=== PATIENT | female | born 1970 | race Caucasian/White ===

== ENCOUNTER 2017-06-03 15:13 | Emergency (ER) | payer OTHER ==
--- NOTE | 2017-06-03 15:56 | ER Document Report ---
ED Medical Screen (RME) - General Chief Complaint: Abdominal Pain Stated Complaint: ABDOMINAL PAIN Time Seen by Provider: 06/03/17 15:53 Notes: Patient states that she has had her gallbladder removed previously. She states she is now having severe epigastric abdominal pain. She has nausea and vomiting. TRAVEL OUTSIDE OF THE [place] IN LAST 30 DAYS: No - Related Data Allergies/Adverse Reactions: No Known Allergies Allergy (Verified 06/03/17 15:48) Past Medical History - Social History Chew tobacco use (# tins/day): No Frequency of alcohol use: Social Drug Abuse: None - Past Medical History Cardiac Medical History: Reports: Hx Hypertension Renal/ Medical History: Denies: Hx Peritoneal Dialysis GI Medical History: Reports: Hx Gastroesophageal Reflux Disease Musculoskeltal Medical History: Reports Hx Fibromyalgia Past Surgical History: Reports: Hx Section - x 3, Hx Cholecystectomy - Immunizations Hx Diphtheria, Pertussis, Tetanus Vaccination: Yes - unknown Physical Exam - Vital signs Vitals: Temp Pulse Resp BP Pulse Ox 97.5 F 98 16 125/87 H 100 06/03/17 15:35 06/03/17 15:35 06/03/17 15:35 06/03/17 15:35 06/03/17 15:35 Course - Vital Signs Vital signs: Temp Pulse Resp BP Pulse Ox 97.5 F 98 16 125/87 H 100 06/03/17 15:35 06/03/17 15:35 06/03/17 15:35 06/03/17 15:35 06/03/17 15:35
[2017-06-03 17:24] LABS: ABSOLUTE BASOPHILS # (AUTO) 0.1 10^3/uL (0.0-0.2); ABSOLUTE LYMPHOCYTES (AUTO) 1.6 10^3/uL (0.5-4.7); ABSOLUTE MONOCYTES (AUTO) 0.7 10^3/uL (0.1-1.4); ABSOLUTE NEUT (AUTO) 10.7 10^3/uL (1.7-8.2); EOSINOPHILS % (AUTO) 0.3 % (0-6); HEMATOCRIT 43.9 % (36.0-47.0); HEMOGLOBIN 15.4 g/dL (12.0-15.5); LYMPHOCYTES % (AUTO) 12.1 % (13-45); MEAN CORPUSCULAR HEMOGLOBIN 31.9 pg (27.0-33.4); MEAN CORPUSCULAR HGB CONC 35.1 g/dL (32.0-36.0); MEAN CORPUSCULAR VOLUME 91 fl (80-97); MONOCYTES % (AUTO) 5.1 % (3-13); PLATELET COUNT 437 10^3/uL (150-450); RED BLOOD COUNT 4.83 10^6/uL (3.72-5.28); RED CELL DISTRIBUTION WIDTH 13.3 % (11.5-14.0); SEGMENTED NEUTROPHILS % (AUTO) 81.5 % (42-78); TOTAL CELLS COUNTED % (AUTO) 100 %; WHITE BLOOD COUNT 13.1 10^3/uL (4.0-10.5)
[2017-06-03 17:39] LABS: APPEARANCE,URINE SLIGHTLY-CLOUDY; BILIRUBIN,URINE NEGATIVE (NEGATIVE); COLOR,URINE YELLOW; GLUCOSE, URINE NEGATIVE (NEGATIVE); KETONES,URINE TRACE mg/dL (NEGATIVE); LEUKOCYTE ESTERASE,URINE NEGATIVE (NEGATIVE); NITRITE,URINE NEGATIVE (NEGATIVE); PROTEIN,URINE NEGATIVE (NEGATIVE); UROBILINOGEN,URINE NEGATIVE mg/dL (<2.0)
[2017-06-03 17:44] LABS: ALANINE AMINOTRANSFERASE 91 U/L (9-52); ALBUMIN 4.9 g/dL (3.5-5.0); ALKALINE PHOSPHATASE 86 U/L (38-126); ANION GAP 16 (5-19); ASPARTATE AMINO TRANSFERASE 77 U/L (14-36); BILIRUBIN,DIRECT 0.3 mg/dL (0.0-0.4); BILIRUBIN,TOTAL 0.5 mg/dL (0.2-1.3); BLOOD UREA NITROGEN 20 mg/dL (7-20); CALCIUM 10.7 mg/dL (8.4-10.2); CARBON DIOXIDE 29 mmol/L (22-30); CHLORIDE 97 mmol/L (98-107); GLUCOSE 122 mg/dL (75-110); LIPASE 200.2 U/L (23-300); POTASSIUM 3.7 mmol/L (3.6-5.0); TOTAL PROTEIN 8.5 g/dL (6.3-8.2)
--- NOTE | 2017-06-03 17:46 | ER Document Report ---
ED GI/ - General Chief Complaint: Abdominal Pain Stated Complaint: ABDOMINAL PAIN Time Seen by Provider: 06/03/17 15:53 Notes: The patient is a 46-year-old female, past medical history GERD, cholecystectomy 3 years ago, presents with epigastric abdominal pain, nausea and vomiting for the past few days. She is also having diarrhea. Patient denies fevers, hematemesis, bloody stool, recent travel, tainted foods, urinary symptoms or chest pain. TRAVEL OUTSIDE OF THE [place] IN LAST 30 DAYS: No - Related Data Allergies/Adverse Reactions: No Known Allergies Allergy (Verified 06/03/17 15:48) Past Medical History - General Information source: Patient - Social History Smoking Status: Current Every Day Smoker Chew tobacco use (# tins/day): No Frequency of alcohol use: Social Drug Abuse: None Family History: Reviewed & Not Pertinent Patient has suicidal ideation: No Patient has homicidal ideation: No - Past Medical History Cardiac Medical History: Reports: Hx Hypertension Renal/ Medical History: Denies: Hx Peritoneal Dialysis GI Medical History: Reports: Hx Gastroesophageal Reflux Disease Musculoskeltal Medical History: Reports Hx Fibromyalgia Past Surgical History: Reports: Hx Section - x 3, Hx Cholecystectomy - Immunizations Hx Diphtheria, Pertussis, Tetanus Vaccination: Yes - unknown Review of Systems - Review of Systems Notes: REVIEW OF SYSTEMS: CONSTITUTIONAL: -fevers, -chills EENT: -eye pain, -difficulty swallowing, -nasal congestion CARDIOVASCULAR: -chest pain, -syncope. RESPIRATORY: -cough, -SOB GASTROINTESTINAL: +epigastric abdominal pain, +nausea, +vomiting, -diarrhea GENITOURINARY: -dysuria, -hematuria MUSCULOSKELETAL: -back pain, -neck pain SKIN: -rash or skin lesions. HEMATOLOGIC: -easy bruising or bleeding. LYMPHATIC: -swollen, enlarged glands. NEUROLOGICAL: -altered mental status or loss of consciousness, -headache, - neurologic symptoms PSYCHIATRIC: -anxiety, -depression. ALL OTHER SYSTEMS REVIEWED AND NEGATIVE. Physical Exam - Vital signs Vitals: Temp Pulse Resp BP Pulse Ox 97.5 F 98 16 125/87 H 100 06/03/17 15:35 06/03/17 15:35 06/03/17 15:35 06/03/17 15:35 06/03/17 15:35 - Notes Notes: PHYSICAL EXAMINATION: GENERAL: Well-appearing, well-nourished and in no acute distress. HEAD: Atraumatic, normocephalic. EYES: Pupils equal round and reactive to light, extraocular movements intact, sclera anicteric, conjunctiva are normal. ENT: nares patent, oropharynx clear without exudates. Moist mucous membranes. NECK: Normal range of motion, supple without lymphadenopathy LUNGS: Breath sounds clear to auscultation bilaterally and equal. No wheezes rales or rhonchi. HEART: Regular rate and rhythm without murmurs ABDOMEN: Soft, moderate epigastric tenderness, normoactive bowel sounds. No guarding, no rebound. No masses appreciated. EXTREMITIES: Normal range of motion, no pitting or edema. No cyanosis. NEUROLOGICAL: Cranial nerves grossly intact. Normal speech, normal gait. Normal sensory and motor exams. PSYCH: Normal mood, normal affect. SKIN: Warm, Dry, normal turgor, no rashes or lesions noted. Course - Re-evaluation Re-evalutation: Patient with epigastric abdominal pain, nausea and vomiting. Lipase is normal and official ultrasound does not show any concerning abnormalities, although it was limited with bowel gas. She has already had a cholecystectomy and no evidence of a retained stone. She has good bowel sounds and is having bowel movements, so bowel obstruction is very unlikely at this time. She does have a slight leukocytosis, but this is most likely related to her nausea and vomiting. She already takes Zantac and told her to increase this to twice a day and add a PPI. She will follow-up with the GI doctor. Given very strict return precautions and she understands. - Vital Signs Vital signs: Temp Pulse Resp BP Pulse Ox 97.9 F 87 18 118/84 99 06/03/17 19:07 06/03/17 19:07 06/03/17 19:07 06/03/17 19:07 06/03/17 19:07 - Laboratory Result Diagrams: 06/03/17 17:06 06/03/17 17:06 Laboratory results interpreted by me: 06/03/17 06/03/17 06/03/17 17:06 17:06 17:06 WBC 13.1 H Seg Neutrophils % 81.5 H Lymphocytes % 12.1 L Absolute Neutrophils 10.7 H Chloride 97 L Glucose 122 H Calcium 10.7 H AST 77 H ALT 91 H Total Protein 8.5 H Urine Ketones TRACE H Urine Blood MODERATE H - Diagnostic Test Radiology reviewed: Image reviewed, Reports reviewed Radiology results interpreted by me: JULIETTE US: Limited, but no acute findings Discharge - Discharge Clinical Impression: Epigastric abdominal pain Condition: Stable Disposition: HOME, SELF-CARE Additional Instructions: ABDOMINAL PAIN: There are many causes of abdominal pain. Pain can mean a serious problem requiring surgery (such as appendicitis). It can also be an innocent problem that goes away on its own (such as a viral infection). Often, time must pass to determine the cause of pain. The physician does not feel that hospitalization is necessary, at present. Things may change within the next 24 hours. Call the doctor or come back for re- examination if any problems occur, such as: (1) Pain that becomes more severe, steady, or becomes concentrated in one specific area. Also, pain that is more severe with movement or coughing. (2) Vomiting that persists or becomes more frequent. (3) Blood in the vomitus, urine, or bowel movements. Blood in the stool may have a tarry or black appearance. (4) Shaking chills or fever greater than 100 degrees F. (5) The abdomen becomes more distended or swollen. (6) Bowel movements cease. (7) Failure to improve as expected. NORMAL EXAM AND WORKUP: At this time, your examination and workup show no significant abnormality. No significant abnormal physical findings are noted. All laboratory, EKG, and imaging (x-ray, CT scans, ultrasound) studies that were ordered show no significant abnormality. Although your examination and all studies that were ordered showed no significant abnormal finding, there are no examinations and no studies that are 100% accurate. There is always the possibility that some abnormality could exist and not be detected with physical examination or within the limits and capabilities of laboratory and other studies. You should return or follow up as you were instructed on your visit today for further evaluation if your symptoms do not resolve. ANTINAUSEA MEDICATION: You have been given a medication to suppress nausea and vomiting. This type of medication can be given as a shot, pill, or suppository. It will usually last for many hours. Pills and shots usually last six to eight hours, suppositories last about 12 hours. For the typical illness, only one or two doses of the medication may be necessary. Mild lightheadedness may occur. This type of medicine can cause drowsiness. Do not drive or operate dangerous machinery while under its influence. Do not mix with alcohol. See your doctor at once if you have muscle spasms or tightness, or uncontrollable motions (particularly of the neck, mouth, or jaw). Persistent vomiting or severe lightheadedness should also be evaluated by the physician. FOLLOW-UP CARE: If you have been referred to a physician for follow-up care, call the physician s office for an appointment as you were instructed or within the next two days. If you experience worsening or a significant change in your symptoms, notify the physician immediately or return to the Emergency Department at any time for re-evaluation. Prescriptions: Omeprazole Magnesium [Prilosec Otc] 20 mg PO Q12H #14 tablet.dr Forms: Elevated Blood Pressure Referrals: CINDY ROMO PA-C [Primary Care Provider] - Follow up as needed DOTTIE HADDAD MD [ACTIVE STAFF] - Follow up as needed
--- NOTE | 2017-06-03 18:24 | RADIOLOGY REPORT (SQ) ---
EXAM DESCRIPTION: U/S ABDOMEN LIMITED W/O DOP COMPLETED DATE/TIME: 06/03/2017 6:10 pm REASON FOR STUDY: ruq pain/?cbd stone COMPARISON: Abdominal CT scan dated March 2015 TECHNIQUE: Dynamic and static grayscale images acquired of the abdomen and recorded on PACS. Davideo dalia selected color Doppler and spectral images recorded. LIMITATIONS: Study is limited due to the patient's condition and overlying bowel gas. FINDINGS: PANCREAS: Pancreas could not be visualized due to overlying bowel gas. LIVER: No masses. Echotexture normal. LIVER VASCULATURE: Normal directional flow of the main portal vein. GALLBLADDER: Status post cholecystectomy ULTRASOUND-DETECTED CORDOVA'S SIGN: Negative. INTRAHEPATIC DUCTS AND COMMON DUCT: CBD and intrahepatic ducts normal caliber. No filling defects. INFERIOR VENA CAVA: Normal flow. AORTA: No aneurysm. RIGHT KIDNEY: 9.3 cm in length. Normal echogenicity. No solid or suspicious masses. No hydronephrosi s. No calcifications. PERITONEAL AND RIGHT PLEURAL SPACE: No ascites or effusions. OTHER: No other significant findings. IMPRESSION: Somewhat limited study as noted above. No significant intra-abdominal abnormalities wer e identified. Findings as noted above TECHNICAL DOCUMENTATION: JOB ID: [id number] [employer]- All Rights Reserved Reading location - IP/workstation name: [email or web address]
[2017-06-03] MEDS ORDERED: ONDANSETRON 4 MG TAB.RAPDIS PO ONE (18:41)
[2017-06-03] MEDS ORDERED: LIDOCAINE 2% VISCOUS SOLN 20 ML UDCUP PO ONE (18:42)
[2017-06-03] MEDS ORDERED: METOCLOPRAMIDE HCL ORAL SOLN 10 MG/10 ML UDCUP PO ONE (18:42)
[2017-06-03] MEDS ORDERED: MAG HYDROX/AL HYDROX/SIMETH SUSP 30 ML UDCUP PO ONE (18:42)
[2017-06-03 19:11] VITALS: BP 118/84
== END 2017-06-03 19:11 | disposition home or self-care (01) ==
LOC: ER 15:13
DX: K21.9 Gastro-esophageal reflux disease without esophagitis (principal); R10.13 Epigastric pain; R11.2 Nausea with vomiting, unspecified; R19.7 Diarrhea, unspecified; I10 Essential (primary) hypertension; F17.200 Nicotine dependence, unspecified, uncomplicated; D72.829 Elevated white blood cell count, unspecified; Z79.899 Other long term (current) drug therapy
CPT/HCPCS: 99284; 36415; 83690; 85025; 81025; 80053; 81001; 76705; S0119; J3490

== ENCOUNTER → 2017-07-22 | Outpatient (CLI) | payer OTHER ==
--- NOTE | 2017-07-22 16:50 | RADIOLOGY REPORT (SQ) ---
EXAM DESCRIPTION: CT ABDOMEN WITH IV ORAL CONT COMPLETED DATE/TIME: 07/22/2017 1:37 pm REASON FOR STUDY: ABN LFT (R94.5), BLOATING (R14.0), EPIGASTRIC PAIN (R10.13)DIAPHRAGMATIC HE R10.13 EPIGASTRIC PAIN R94.5 ABNORMAL RESULTS OF LIVER FUNCTION STUDIES COMPARISON: CT abdomen pelvis 04/04/2015 TECHNIQUE: CT scan of the abdomen performed with intravenous and with oral contrast using helical sc anning technique with dynamic intravenous contrast injection. Images reviewed with lung, soft tissue, and bone windows. Reconstructed coronal and sagittal MPR images reviewed. Delayed images for evaluat ion of the urinary system also acquired and evaluated. All images stored on PACS. All CT scanners at this facility use dose modulation, iterative reconstruc tion, and/or weight based dosing when appropriate to reduce radiation dose to as low as reasonably ac hievable (ALARA). [facility]: Dose Right [facility]: CareDose [facility]: Dose Right [facility]: Teradose 4D [facility]: PTC [employer]rapeutics CONTRAST TYPE AND DOSE: contrast/concentration: Isovue 370.00 mg/ml; Total Contrast Delivered: 74.0 ml; Total Saline Delivered: 66.0 ml RENAL FUNCTION: Creatinine 0.9 RADIATION DOSE: CT Rad equipment meets quality standard of care and radiation dose reduction techniq ues were employed. CTDIvol: 6.6 - 7.4 mGy. DLP: 463 mGy-cm. . LIMITATIONS: None. FINDINGS: LOWER CHEST: No significant findings. No nodules or infiltrates. LIVER: Normal size. No masses. No dilated ducts. Diffuse low attenuation from fatty infiltration. SPLEEN: Normal size. No focal lesions. PANCREAS: No masses. No significant calcifications. No adjacent inflammation or peripancreatic fluid collections. Pancreatic duct not dilated. GALLBLADDER: Surgically absent ADRENAL GLANDS: No significant masses or asymmetry. RIGHT KIDNEY AND URETER: No solid masses. No significant calcifications. No hydronephrosis or hyd roureter. LEFT KIDNEY AND URETER: No solid masses. No significant calcifications. No hydronephrosis or hydr oureter. AORTA AND VESSELS: No aneurysm. No dissection. Renal arteries, SMA, celiac without stenosis. RETROPERITONEUM: No retroperitoneal adenopathy, hemorrhage or masses. BOWEL AND PERITONEAL CAVITY: Patient drank oral contrast. Visualized stomach, small bowel and colon are unremarkable. No bowel obstruction. No free air or fluid. APPENDIX: Normal. ABDOMINAL WALL: No masses. No hernias. BONES: No significant or acute findings. OTHER: No other significant finding. IMPRESSION: Post cholecystectomy. Fatty liver Otherwise unremarkable CT abdomen with oral and IV contrast TECHNICAL DOCUMENTATION: JOB ID: [id number] Quality ID # [id number]: Final reports with documentation of one or more dose reduction techniques (e.g., Au tomated exposure control, adjustment of the mA and/or kV according to patient size, use of iterative reconstruction technique) 2010 [employer]- All Rights Reserved Reading location - IP/workstation name: [email or web address]
== END ==
LOC: RAD 13:11
PROVIDERS: ATTEND Internal Medicine Gastroenterology
DX: K44.9 Diaphragmatic hernia without obstruction or gangrene (principal); R10.13 Epigastric pain; R14.0 Abdominal distension (gaseous); R94.5 Abnormal results of liver function studies
CPT/HCPCS: 74160; 82565

== ENCOUNTER 2019-11-15 14:54 | Emergency (ER) | payer OTHER ==
--- NOTE | 2019-11-15 15:35 | ER Document Report ---
ED Extremity Problem, Lower - General Chief Complaint: Toe Injury Stated Complaint: RIGHT FOOT/TOES INJURY Time Seen by Provider: 11/15/19 15:27 Primary Care Provider: HORTENSIA BOLES DO [Primary Care Provider] - Follow up as needed Mode of Arrival: Wheelchair Information source: Patient Notes: 49-year-old female presented to ED for complaint of pain to the third and fourth toe on the right foot as well as the foot red in front of these 2 toes. She states it ended on the bed yesterday. She states is continued to have pain so she came to the emergency room to have it evaluated. She states she did take ibuprofen earlier today. She is a former smoker drinks 2 glasses of wine a day but 4 days a week no drugs. States she does take a water pill for her blood pressure but no other medical history. She is alert oriented respirations regular nonlabored speaking in full sentences. Constitutional: Negative for fever. HENT: Negative for sore throat. Eyes: Negative for visual changes. Cardiovascular: Negative for chest pain. Respiratory: Negative for shortness of breath. Gastrointestinal: Negative for abdominal pain, vomiting or diarrhea. Genitourinary: Negative for dysuria. Musculoskeletal: Pain bruising to the right foot and the fourth and third toe Skin: As into the third and fourth toe on right foot Neurological: Negative for headaches, weakness or numbness. 10 point ROS negative except as marked above and in HPI. PHYSICAL EXAMINATION: GENERAL: Well-appearing, well-nourished and in no acute distress. HEAD: Atraumatic, normocephalic. EYES: Pupils equal round extraocular movements intact, conjunctiva are normal. ENT: Nares patent NECK: Normal range of motion LUNGS: No respiratory distress Musculoskeletal: Normal range of motion patient has pain to the right foot just in front of the left third and fourth toe and bruising and pain to the third and fourth toe. NEUROLOGICAL: Normal speech, normal gait. PSYCH: Normal mood, normal affect. SKIN: Warm, Dry, normal turgor, no rashes or lesions noted. Bruising to the third and fourth toe on right foot TRAVEL OUTSIDE OF THE [place] IN LAST 30 DAYS: No - HPI Patient complains to provider of: Injury, Pain, Swelling Location: Foot, 3rd Toe, 4th Toe Occurred: Yesterday Where: Home, Indoors Onset/Duration: Gradual Quality of pain: Achy, Throbbing Severity: Moderate Pain Level: 3 Context: Barefoot Recent injury: Yes Associated symptoms: Painful ambulation Exacerbated by: Nothing Relieved by: Nothing - Related Data Allergies/Adverse Reactions: No Known Allergies Allergy (Verified 06/03/17 15:48) Past Medical History - General Information source: Patient - Social History Smoking Status: Former Smoker Frequency of alcohol use: Heavy - 2 glasses of wine 4 days a week Drug Abuse: None Lives with: Family Family History: Reviewed & Not Pertinent Patient has suicidal ideation: No Patient has homicidal ideation: No - Past Medical History Cardiac Medical History: Reports: Hx Hypertension Pulmonary Medical History: Reports: None EENT Medical History: Reports: None Neurological Medical History: Reports: None Endocrine Medical History: Reports: None Renal/ Medical History: Reports: None Malignancy Medical History: Reports: None GI Medical History: Reports: Hx Gastroesophageal Reflux Disease Musculoskeletal Medical History: Reports Hx Fibromyalgia Skin Medical History: Reports None Psychiatric Medical History: Reports: None Traumatic Medical History: Reports: None Infectious Medical History: Reports: None Past Surgical History: Reports: Hx Section - x 3, Hx Cholecystectomy - Immunizations Hx Diphtheria, Pertussis, Tetanus Vaccination: Yes - unknown Physical Exam - Vital signs Vitals: Temp Pulse Resp BP Pulse Ox 98.4 F 84 20 116/74 96 11/15/19 15:00 11/15/19 15:00 11/15/19 15:00 11/15/19 15:00 11/15/19 15:00 Course - Re-evaluation Re-evalutation: 11/15/19 17:01 Discussed x-rays with patient and written report of x-rays given to patient. There is no fractures noted on the x-rays. Patient was given instructions on use of crutches and she states it is very painful to bear weight on this foot. She was given the name and number of orthopedics. She was instructed on elevation ice ibuprofen. Patient verbalized understanding and agreement with treatment plan patient was discharged home. - Vital Signs Vital signs: Temp Pulse Resp BP Pulse Ox 98.4 F 84 20 116/74 96 11/15/19 16:04 11/15/19 15:00 11/15/19 15:00 11/15/19 15:00 11/15/19 15:00 - Diagnostic Test Radiology reviewed: Image reviewed, Reports reviewed Procedures - Immobilization Right Foot Time completed: 17:01 Pre-Proc Neuro Vasc Exam: Normal Immobilizer type: Crutches Performed by: RN Post-Proc Neuro Vasc Exam: Normal Alignment checked and good: Yes Discharge - Discharge Clinical Impression: Contusion of right foot including toes Qualifiers: Encounter type: initial encounter Qualified Code(s): S90.31XA - Contusion of right foot, initial encounter; S90.121A - Contusion of right lesser toe(s) without damage to nail, initial encounter Condition: Stable Disposition: HOME, SELF-CARE Additional Instructions: CONTUSION: Your injury has resulted in a contusion -- a crushing of the deep tissues. No injury to important structures was detected during the physician's exam. Contusions vary in the amount of pain they cause, and in the length of time required for healing. Typically, the area will become bruised, and will remain painful to touch for two or three weeks. However, most patients are back to working and playing within a few days. After the initial period of rest and cold-packs, your symptoms (together with the doctor's recommendations) will determine how rapidly you can get back to full activity. Usually this means "do what feels okay, but don't do things that hurt." If re-examination was recommended, it's important to follow up as instructed. Call the doctor or return any time if pain increases, if swelling becomes severe, if you develop numbness or weakness in an injured extremity, or if any other alarming symptoms occur. USE OF TYLENOL (ACETAMINOPHEN): Acetaminophen may be taken for pain relief or fever control. It's much safer than aspirin, offering a wider range of "safe" dosages. It is safe during . Some brand names are Tylenol, Panadol, Datril, Anacin 3, Tempra, and Liquiprin. Acetaminophen can be repeated every four hours. The following are maximum recommended dosages: WEIGHT Dose Drops Elixir Chewable(80mg) (LBS.) drprs=droppers tsp=teaspoon 6 40 mg 0.4 ml (1/2) 6-11 80 mg 0.8 ml (full) tsp 1 tab 12-16 120 mg 1 1/2 drprs 3/4 tsp 1 1/2 tabs 17-23 160 mg 2 drprs 1 tsp 2 tabs 24-30 240 mg 3 drprs 1 1/2 tsp 3 tabs 30-35 320 mg 2 tsp 4 tabs 36-41 360 mg 2 1/4 tsp 4 1/2 tabs 42-47 400 mg 2 1/2 tsp 5 tabs 48-53 480 mg 3 tsp 6 tabs 54-59 520 mg 3 1/4 tsp 6 1/2 tabs 60-64 560 mg 3 1/2 tsp 7 tabs 65-70 600 mg 3 3/4 tsp 7 1/2 tabs 71-76 640 mg 4 tsp 8 tabs 77-82 720 mg 4 1/2 tsp 9 tabs 83-88 800 mg 5 tsp 10 tabs >89 pounds or adults 650 mg to 900 mg Acetaminophen can be repeated every four hours. Maximum dose not to exceed 4000 mg a day. These maximum recommended dosages are slightly higher than the dosages written on the product container, but these dosages are very safe and below the toxic dosage for acetaminophen. USE OF CRUTCHES: The doctor has recommended that you not bear weight at this time. You will need to use crutches. Adjust the crutches so the tops come to about two inches under the armpit while you are standing upright. Use your hands -- not your armpits -- to support your weight. To get into a chair, support yourself with one crutch on the injured side. Hold the chair with the other hand, then lower yourself while putting all your weight on the good leg. Going up stairs is `good leg up, step up, then bring up crutches and bad leg.' Down stairs is `bad leg and crutches down, then bring good leg down.' If you develop numbness or swelling in an arm or hand, you are using the crutches incorrectly. Return if you are having any problems with the crutches. ICE & ELEVATION: Apply ice packs frequently against the painful area. Many different schedules are recommended, such as "20 minutes on, 20 minutes off" or "one hour ice, two hours rest." If you need to work, you may need to go longer between ice treatments. You should plan to have the area ice packed AT LEAST one-fourth of the time. The ice should be applied over the wrap, tape, or splint, or over a layer of cloth -- not directly against the skin. Some ice bags have a built-in cloth and can be put directly on the skin. Your injured part should be elevated as much as possible over the next 48 hours. Try to keep the injury above the level of the heart. Avoid use of the injured area. Elevation and rest will decrease the swelling. USE OF [id number] IBUPROFEN: Ibuprofen (Advil, Nuprin, Medipren, Motrin IB) is a medication for fever and pain control. In addition, it has anti- inflammatory effects which may be beneficial, especially in the treatment of injuries. It's best to take ibuprofen with food. Persons with ulcer disease or allergy to aspirin should notify their physician of this before taking ibuprofen. Ibuprofen can be given every four to six hours, for a total of four doses daily. Age Pain or fever dose Antiinflammatory dose 6-8 yr 200 mg (1 tab) 200 mg (1 tab) 9-11 yr 200 mg (1 tab) 200-400 mg (1-2 tab) 11-14 yr 200-400 mg (1-2 tab) 400 mg (2 tab) 15-adult 400 mg (2 tab) 600 mg (3 tab) FOLLOW-UP CARE: If you have been referred to a physician for follow-up care, call the physicians office for an appointment as you were instructed or within the next two days. If you experience worsening or a significant change in your symptoms, notify the physician immediately or return to the Emergency Department at any time for re-evaluation. Forms: Return to Work Referrals: HORTENSIA BOLES DO [Primary Care Provider] - Follow up as needed [facility] [Provider Group] - Follow up as needed
--- NOTE | 2019-11-15 16:44 | RADIOLOGY REPORT (SQ) ---
EXAM DESCRIPTION: FOOT RIGHT COMPLETE IMAGES COMPLETED DATE/TIME: 11/15/2019 4:05 pm REASON FOR STUDY: pain and injury to right foot and 3 and4 toe yest COMPARISON: None. NUMBER OF VIEWS: Three views. TECHNIQUE: AP, lateral and oblique radiographic images acquired of the right foot. LIMITATIONS: None. FINDINGS: MINERALIZATION: Normal. BONES: No acute fracture or dislocation. No worrisome bone lesions. JOINTS: No effusions. SOFT TISSUES: No focal soft tissue swelling. No foreign body. OTHER: No other significant finding. IMPRESSION: No evidence of acute osseous injury. TECHNICAL DOCUMENTATION: JOB ID: [id number] 2010 [employer]- All Rights Reserved Reading location - IP/workstation name: [email or web address]
[2019-11-15 17:00] VITALS: BP 120/77
== END 2019-11-15 17:06 | disposition home or self-care (01) ==
LOC: ER 14:54
DX: S90.31XA Contusion of right foot, initial encounter (principal); S90.121A Contusion of right lesser toe(s) without damage to nail, initial encounter; W22.03XA Walked into furniture, initial encounter; Y92.003 Bedroom of unspecified non-institutional (private) residence as the place of occurrence of the external cause; I10 Essential (primary) hypertension; Z90.49 Acquired absence of other specified parts of digestive tract
CPT/HCPCS: 36591; 99283